=== PATIENT | male | born 1995 | race Caucasian/White ===

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

== ENCOUNTER 2017-07-10 11:11 | Emergency (ER) | payer BC ==
[~2017-07-10] VITALS: Ht 182.9 cm; Wt 80.7 kg
[2017-07-10 11:16] VITALS: TEMP 36.5; Ht 182.9 cm; Wt 80.7 kg
[2017-07-10] MEDS ORDERED: ACET-1256 PO (11:24)
--- NOTE | 2017-07-10 12:29 | DIAGNOSTIC IMAGING REPORT ---
CT SCAN OF THE BRAIN WITHOUT IV CONTRAST CLINICAL HISTORY: Head injury. Concussion symptoms. COMPARISON STUDY: CT of the brain dated 11/12/2006. TECHNIQUE: Unenhanced axial CT scan of the brain is performed from the vertex to the skull base. A dose lowering technique was utilized adhering to the principles of ALARA. CT DOSE: 778.22 mGy.cm FINDINGS: Brain parenchyma: The brain parenchyma is normal in appearance. There is no hemorrhage, mass effect, or evidence of acute territorial ischemia by CT criteria. Kumari-white matter is preserved. No extra-axial fluid collection is seen. Ventricles, sulci, cisterns: Normal in configuration. Cavum septum pellucidum is incidentally noted. Intracranial vasculature: The visualized intracranial vasculature at the skull base is normal in appearance. Calvarium: There is no depressed calvarial fracture. Sinuses and mastoids: Trace mucosal thickening is seen in the ethmoid sinuses. The remaining visualized paranasal sinuses are clear. The mastoid air cells are well pneumatized. Orbits: The bony orbits are grossly intact. IMPRESSION: No acute intracranial abnormality. Electronically signed by: Venkata Chaves M.D. 07/10/2017 12:27 PM Dictated Date/Time: 07/10/2017 12:25 PM
--- NOTE | 2017-07-10 12:42 | DIAGNOSTIC IMAGING REPORT ---
CT SCAN OF THE FACIAL BONES WITHOUT IV CONTRAST CLINICAL HISTORY: Head injury. Headache. Right-sided facial pain with chewing. COMPARISON STUDY: CT of the brain performed concurrently on 07/10/2017. TECHNIQUE: High-resolution CT scan of the facial bones is performed. Images are reviewed in the axial, sagittal, and coronal planes. IV contrast was not administered for this examination. A dose lowering technique was utilized adhering to the principles of ALARA. CT DOSE: Reported separately under the concurrently performed CT scan of the brain. FINDINGS: The skeletal structures are well mineralized. There is no evidence of facial bone fracture. The bony orbits are intact and the orbital contents are within normal limits. The zygomatic arches, nasal bones, and pterygoid plates are preserved. The maxilla and mandible are intact. The temporomandibular joints are maintained. There are no layering blood products within the paranasal sinuses. There is trace mucosal thickening in the left maxillary antrum and ethmoid sinuses. The remaining paranasal sinuses are clear. The mastoid air cells are well pneumatized. The visualized calvarium and upper cervical spine are maintained. Partially imaged brain parenchyma is within normal limits. IMPRESSION: There is no evidence of facial bone fracture. Electronically signed by: Venkata Chaves M.D. 07/10/2017 12:40 PM Dictated Date/Time: 07/10/2017 12:36 PM
[2017-07-10 13:09] VITALS: BP 121/76; PULSE 50; O2SAT 100
--- NOTE | 2017-07-10 20:42 | EMERGENCY ROOM VISIT NOTE ---
ED Visit Note First contact with patient: 11:20 Chief Complaint: I'm having pain over the side of my right head and jaw. History of Present Illness: Mr. Puckett is a 22-year-old white male who ambulates into the ED accompanied by his mother complaining of right sided head and facial pain. Patient reports he was playing soccer yesterday afternoon. Himself and another player from the opposing team went up to head the ball and he was struck in the side of the head and face with the other persons head. He reports at the time of the injury he had no loss of consciousness. He does report he quickly developed a right sided headache that became more global over the last 18 hours. Currently he is describing his discomfort as a pressure sensation. He rates his discomfort 5/10. His pain is nonradiating. His pain worsens with palpation. He has not identified any alleviating factors related to the pain. He reports he took ibuprofen without relief of his discomfort. Associated with his pain he reports there is been mild blurry vision, ringing in his ears and some mild dizziness. He denies hearing changes, difficulty speaking, difficulty swallowing, difficulty walking/coronary body movements, neck pain, chest pain, shortness of breath, abdominal pain, nausea, vomiting, extremity weakness/numbness/tingling. Additionally patient complains of facial pain over the right jaw and cheek area. He describes this as an achy sensation. He rates this discomfort 3/10. The pain is nonradiating. Pain worsens with chewing. He has not identified any alleviating factors related to the pain. Patient was evaluated at a local urgent care center and referred to the ED because of his symptoms. Review of Systems: As noted above in history of present illness. 10 body systems were reviewed and found to be negative as noted above. Past Medical History: Patient denies. Current Medications: Patient denies. Allergies to Medications: Patient denies. Social History: Patient is currently a university student; he feels safe in his home environment; he denies tobacco use. Physical Examination: Vital Signs: Date Time Temp Pulse Resp B/P (MAP) Pulse Ox O2 Delivery O2 Flow Rate FiO2 07/10/17 13:09 50 16 121/76 100 07/10/17 11:16 36.5 51 18 146/87 97 GENERAL: 22-year-old male in mild distress due to symptoms, nontoxic-appearing, afebrile and hemodynamically stable. NEUROLOGICAL: Awake, alert and oriented to person, place and time. Answering questions appropriately and following commands. Normal gait. Good hand eye coordination. Romberg test negative. Pronator drift test negative. Cranial nerves II through XII grossly intact. Normal rapid alternating movements of the hands and finger. Good short-term and long-term recall. Normal heel everett test. SKIN: Warm, dry and pink. No soft tissue trauma noted. HEENT: Atraumatic and normocephalic. Skull: Mild tenderness over the right temporal parietal area without bony deformity, bony crepitus, swelling or ecchymosis. No raccoon's eyes or maier signs. No drainage in the ears of the nostril; no hemotympanum. Face: Mild tenderness over the mandible and zygomatic arch on the right without bony deformity, bony crepitus, swelling or ecchymosis. PERRLA. EOMI without nystagmus. Sclera white and conjunctiva pink. No malocclusion. No intraoral trauma. Airway pain. Speech normal and clear. Trachea midline. No jugular venous distention. BACK: No tenderness over the bony cervical and thoracic spine. Full range of motion of the cervical spine. UPPER EXTREMITIES: Moves extremities well on command with purpose. 5/5 muscle strength in all movements of the shoulder, elbow, forearm or wrist. Throughout the extremities skin was warm and pink and capillary refill is brisk. He was able to distinctly slight sensations through all dermatomes. ED Course: Patient is assessed as noted above. Patient's medication list was reviewed. Patient was offered pain medication and refused. Head CT: Was reviewed by myself and read by the radiologist showing no acute intracranial abnormalities or skull fractures. Facial CT: Was read by myself and show no evidence of facial fractures. Patient and mother were educated about today's findings and instructed on his treatment plan; he verbalized understanding and agreement with this plan. Clinical Impression: Closed head injury. Right sided facial pain. Decision-Making: Initially my differential diagnosis I considered intracranial bleed, skull fracture, facial fracture, concussion and other causes. Disposition: Patient discharged home in stable condition accompanied by his mother; prior to departure he was reassessed and subjectively reported he was feeling better and rated his discomfort 3/10. Plan: Patient was encouraged use ibuprofen or acetaminophen as needed for pain. Patient was encouraged use ice on areas of pain and/or swelling. Patient was encouraged to rest for the next 48 hours and avoid alcohol use. Patient and mother were educated on signs of worsening head injury. Patient was encouraged to keep his upcoming appointment with the concussion clinic. Patient was encouraged return ED for worsening signs of head injury, worsening facial pain or any new/concerning symptoms.
== END 2017-07-10 13:06 | disposition home or self-care (01) ==
LOC: C.EDB 11:12 → C.EDD 13:06
DX: S09.90XA Unspecified injury of head, initial encounter (principal); R51 Headache; R68.84 Jaw pain; W51.XXXA Accidental striking against or bumped into by another person, initial encounter; Y93.66 Activity, soccer